=== PATIENT | female | born 1935 | race Caucasian/White ===

== ENCOUNTER 2017-07-27 09:15 | Inpatient (IN) | payer MEDICARE, OTHER ==
[2017-07-26 14:20] VITALS: BMI 29.3
[2017-07-27] MEDS ORDERED: CEFAZOLIN/Water 2 GM/20 ML SYRINGE ONE (09:49)
[2017-07-27] MEDS ORDERED: Ketorolac Tromethamine 30 MG/ML VIAL ONE (09:49)
[2017-07-27 09:55] LABS: #Eosinphils 0.1 thou/uL (0.0-0.7); #Lymphocytes 1.1 thou/uL (1.20-3.40); #Monocytes 0.3 thou/uL (0.11-0.59); #Neutrophils 3.3 thou/uL (1.40-6.50); %Basophils 0.8 % (0.0-1.0); %Eosinophils 2.9 % (0.0-10.0); %Lymphocytes 22.5 % (21.0-51.0); %Monocytes 6.8 % (0.0-10.0); Hemoglobin 13.1 g/dL (12.0-16.0); Mean Corpuscular HGB CONC 32.2 g/dL (32.0-36.0); Mean Corpuscular Hemoglobin 29.6 pg (27.0-31.0); Mean Corpuscular Volume 91.9 fl (81.0-99.0); Mean Platelet Volume 6.1 fL (7.4-10.4); Platelet Count 271 thou/uL (130-400); RBC Distribution Width 13.4 % (11.5-14.5); Red Blood Cell (RBC) Count 4.42 mill/uL (4.20-5.40); White Blood Cell (WBC) Count 4.9 thou/uL (4.8-10.8)
[2017-07-27 10:23] LABS: Anion Gap 11 mmol/L (10-20); BUN (Urea Nitrogen) 18 mg/dL (9.8-20.1); Calc. Creatinine Clearance 73 mL/min (70-130); Calcium 8.8 mg/dL (7.8-10.44); Carbon Dioxide 26 mmol/L (23-31); Chloride 105 mmol/L (98-107); Estimated GFR-MDRD 70; Glucose 90 mg/dL (83-110); Potassium 4.2 mmol/L (3.5-5.1); Sodium 138 mmol/L (136-145)
[2017-07-27] MEDS ORDERED: HYDROmorphone 0.5 MG/0.5 ML SYRINGE ONE (10:35)
[2017-07-27] MEDS ORDERED: Fentanyl 250 MCG/5 ML VIAL ONE ×2 (10:35→13:50)
[2017-07-27] MEDS ORDERED: Bupivacaine/Epinephrine 0.25% 30 ML VIAL ONE (10:43)
--- NOTE | 2017-07-27 11:02 | RAD ---
PORTABLE CHEST 1 VIEW: DATE: 07/27/17. TIME: 9:51 a.m. HISTORY: Preoperative laparoscopic Juma fundoplication. FINDINGS: The heart size is normal. The aorta is tortuous. The lungs are expanded without focal areas of cons olidation, pneumothorax, or pleural effusions. IMPRESSION: No radiographic evidence of acute cardiopulmonary process. POS: [facility]
[2017-07-27] MEDS ORDERED: Ondansetron HCl/PF 4 MG/2 ML Vial IVP PRN ×2 (14:05→15:19)
[2017-07-27] MEDS ORDERED: Promethazine HCl 25 MG/ML VIAL SLOW IVP PRN (14:05)
[2017-07-27] MEDS ORDERED: Promethazine HCl 25 MG/ML VIAL IM PRN ×2 (14:05→15:19)
[2017-07-27] MEDS ORDERED: ePHEDrine/0.9% NaCl/PF SYRINGE 50 mg/10 ml ONE (15:07)
[2017-07-27] MEDS ORDERED: Ondansetron HCl/PF 4 MG/2 ML Vial ONE (15:07)
[2017-07-27] MEDS ORDERED: PHENYLEPHRINE-NS 100 MCG/ML 10 ML SYRINGE ONE (15:07)
[2017-07-27] MEDS ORDERED: Glycopyrrolate 0.2 MG/ML 5 ML SYRINGE ONE (15:07)
[2017-07-27] MEDS ORDERED: Succinylcholine Chloride 20 MG/ML 10 ml SYRINGE FS ONE (15:07)
[2017-07-27] MEDS ORDERED: Propofol 200 MG/20 ML VIAL ONE (15:07)
[2017-07-27] MEDS ORDERED: Lidocaine 1% PF 5 ML VIAL ONE (15:07)
[2017-07-27] MEDS ORDERED: Dexamethasone 20 MG/5 ML VIAL ONE (15:07)
[2017-07-27] MEDS ORDERED: Mag-Al 1200 mg/1200 mg/30 ML UDCUP PO PRN (15:19)
[2017-07-27] MEDS ORDERED: Calcium Carbonate 500 MG ChewTAB PO PRN (15:19)
[2017-07-27] MEDS ORDERED: HYDROcodone/Acetaminophen 10/325 mg Tablet PO PRN (15:19)
[2017-07-27] MEDS ORDERED: Morphine 4 MG/ML VIAL SLOW IVP PRN ×2 (15:19)
[2017-07-27] MEDS ORDERED: hydrALAZINE 20 MG/ML VIAL SLOW IVP PRN (15:19)
[2017-07-27] MEDS ORDERED: Dextrose 5% in Water 1,000 ML IV PRN (15:19)
[2017-07-27] MEDS ORDERED: Dextrose 50% Abboject 50 ML SYRINGE SLOW IVP PRN (15:19)
[2017-07-27] MEDS: Lactated Ringer's 1,000 ML IV SCH (16:05)
[2017-07-27] MEDS: Ketorolac Tromethamine 30 MG/ML VIAL IVP SCH (17:47)
[2017-07-27] MEDS ORDERED: Donepezil HCl 10 MG TAB PO SCH (21:00)
[2017-07-27] MEDS: Famotidine/PF 20 mg/2ml Vial SLOW IVP SCH (21:53)
[2017-07-27] MEDS: Famotidine 20 MG TAB PO SCH (22:12)
[2017-07-27] MEDS: Pramipexole Di-HCl 0.25 MG TAB PO SCH (22:13)
[2017-07-27] MEDS ORDERED: Levothyroxine Sodium 112 MCG TAB PO SCH (22:30)
[2017-07-27] MEDS ORDERED: Levothyroxine Sodium 25 MCG TAB PO SCH (22:30)
[2017-07-28] MEDS: Lactated Ringer's 1,000 ML IV SCH ×2 (00:25→08:39)
[2017-07-28] MEDS: Ketorolac Tromethamine 30 MG/ML VIAL IVP SCH ×2 (00:46→06:13)
[2017-07-28 05:04] LABS: #Lymphocytes 0.8 thou/uL (1.20-3.40); #Monocytes 0.5 thou/uL (0.11-0.59); #Neutrophils 6.7 thou/uL (1.40-6.50); %Basophils 0.1 % (0.0-1.0); %Eosinophils 0.1 % (0.0-10.0); %Lymphocytes 10.3 % (21.0-51.0); %Monocytes 6.5 % (0.0-10.0); %Neutrophils 82.9 % (42.0-75.0); Hemoglobin 11.4 g/dL (12.0-16.0); Mean Corpuscular HGB CONC 33.7 g/dL (32.0-36.0); Mean Corpuscular Hemoglobin 31.9 pg (27.0-31.0); Mean Corpuscular Volume 94.5 fl (81.0-99.0); Mean Platelet Volume 6.7 fL (7.4-10.4); Platelet Count 223 thou/uL (130-400); RBC Distribution Width 13.3 % (11.5-14.5); Red Blood Cell (RBC) Count 3.56 mill/uL (4.20-5.40); White Blood Cell (WBC) Count 8.1 thou/uL (4.8-10.8)
[2017-07-28 05:30] LABS: ALT (SGPT) 45 U/L (8-55); AST (SGOT) 44 U/L (5-34); Albumin 3.3 g/dL (3.4-4.8); Alkaline Phosphatase 62 U/L (40-150); Anion Gap 9 mmol/L (10-20); BUN (Urea Nitrogen) 14 mg/dL (9.8-20.1); Bilirubin, Total 0.6 mg/dL (0.2-1.2); Calc. Creatinine Clearance 82 mL/min (70-130); Carbon Dioxide 27 mmol/L (23-31); Chloride 103 mmol/L (98-107); Estimated GFR-MDRD 80; Globulin 2.5 g/dL (2.4-3.5); Glucose 113 mg/dL (83-110); Potassium 4.1 mmol/L (3.5-5.1); Protein, Total 5.8 g/dL (6.0-8.3); Sodium 135 mmol/L (136-145)
[2017-07-28 07:44] VITALS: BP 115/70; TEMP 98.3
[2017-07-28] MEDS: Famotidine 20 MG TAB PO SCH (08:39)
[2017-07-28] MEDS: Famotidine/PF 20 mg/2ml Vial SLOW IVP SCH (08:40)
[2017-07-28] MEDS: Pramipexole Di-HCl 0.25 MG TAB PO SCH (08:40)
[2017-07-28] MEDS ORDERED: LEVOTHYROXINE SODIUM 137 MCG PO SCH (09:00)
[2017-07-28] MEDS ORDERED: Citalopram 20 MG TAB PO SCH (09:00)
[2017-07-28] MEDS ORDERED: Levothyroxine Sodium 25 MCG TAB PO SCH (21:00)
[2017-07-28] MEDS ORDERED: Levothyroxine Sodium 112 MCG TAB PO SCH (21:00)
--- NOTE | 2017-07-29 16:48 | OP ---
DATE OF CONSULTATION: 07/27/2017 PREOPERATIVE DIAGNOSES: Hiatal hernia with gastroesophageal reflux disease. POSTOPERATIVE DIAGNOSIS: Hiatal hernia with gastroesophageal reflux disease. OPERATION PERFORMED: Laparoscopic Toro fundoplication with hiatal hernia repair. SURGEON: Alexis Valladares M.D. ANESTHESIA: General endotracheal. INDICATIONS: The patient is an 81-year-old white female. She presents at this time with a symptomat ic hiatal hernia producing substantial gastroesophageal reflux. She is taken to operating room at th is time for repair. DESCRIPTION OF OPERATION: Informed consent was obtained. The patient was taken to the operating abdoulaye m where general endotracheal anesthesia was obtained with the patient in supine position. Abdomen wa s prepped with ChloraPrep and draped in sterile fashion. Local anesthetic was infiltrated and a 5 mm left lateral subcostal incision was created through which a Veress needle was passed into the perito josue cavity. Pneumoperitoneum stopped. She was covered accept a pressure of 15 mmHg. A 5 mm trocar port was passed through this same incision. Laparoscopic camera was passed through this port. Under direct vision, a 5 mm supraumbilical port was placed as well as a 5 mm right lateral port. There we re substantial omental adhesions to the anterior abdominal wall from her prior open cholecystectomy. These were all taken down carefully using the LigaSure device. When the intra-abdominal wall was cl eared completely, the two final ports were placed. An 11 mm left epigastric port and a 5 mm right ep igastric port were placed. The triangle retractor was passed through the right lateral port and used to elevate the left lobe of the liver and it was held in place. Attention was then turned to the lesser curve of the stomach. The gastrohepatic omentum was incised through the pars flaccida. This was carried up towards the eso phagus. This afforded excellent visualization of the right bruce. Retroperitoneal incision was creat ed over the right bruce and the dissection was carried to the left to begin to dissect a retroesophage al window. I then dissected the anterior aspect of the gastroesophageal junction and dissected the h iatus circumferentially down onto the left bruce. I then was able to easily visualize the retroesopha geal window and a Monett drain was passed through this and used to elevate the esophagus. Attention was turned to the greater curve of the stomach. The upper third of this was taken down usi ng the LigaSure device to divide the fatty and vascular tissue along the greater curve. This was car ried up to divide the short gastrics. The left bruce of the diaphragm was completely dissected at thi s point as well. Once the stomach was completely mobilized, attention was then returned to the esophagus. I dissected up into the mediastinum freeing the esophagus for 3-4 cm up into the mediastinum. This laxity allow ed several centimeters of the esophagus to be pulled down into the abdomen without tension. Attention was then turned to the hiatus. The hiatus was felt to be able to be approximated without a ny significant tension. The posterior crura were approximated with a suture of 0 Bralon. This led t o fairly good closure, but I decided to place one additional suture of 0 Bralon. Unfortunately, in p lacing the [id number], part of the crura on the right side of the diaphragm, the sutures had bee n placed through a torn creating a separate defect to the right. I placed one 0 Bralon stitch in thi s to close the defect and then incorporated the defect into a final stitch at the hiatus. There were then was excellent approximation of the hiatus around the esophagus. The wrap was then constructed a pulling part of the fundus through the retroesophageal window and sew ing the fundus on either side of the esophagus to itself. This was accomplished with 3 sutures of 0 Bralon. The upper and lower sutures were placed between the 2 portions of the fundus as well as inco rporating bites of the anterior part of the esophagus. The middle bite did not incorporate esophagus . The wrap was very loose around the esophagus. Not mentioned above is that the hiatus was closed over a #50 bougie and that same bougie was left in place for the wrap. Finally, I placed three additional sutures to fixate the wrap within the abdomen. I placed collar patel tures at approximately the 1:30 and the 10:30 radians between the wrap and the hiatus. I also placed a posterior gastropexy between the wrap and the crural closure posteriorly. The area was irrigated and all irrigant was aspirated. There have been no substantial blood loss during the operation. The snake retractor was removed. The fascia at the 11 mm port site was closed with 0 Vicryl suture usin g a GraNee needle. All ports and instruments were removed under direct vision. Pneumoperitoneum was carefully evacuated. Quarter percent Marcaine with epinephrine was infiltrated at each port site an d skin edges approximated with 4-0 Monocryl subcuticular suture. Dermabond was placed externally. T here were no complications. Patient tolerated the procedure well and was taken to recovery room in s table condition.
--- NOTE | 2017-08-01 20:11 | EKG ---
Test Reason : PREOP Blood Pressure : / mmHG Vent. Rate : 070 BPM Atrial Rate : 070 BPM P-R Int : 186 ms QRS Dur : 074 ms QT Int : 410 ms P-R-T Axes : 024 050 051 degrees QTc Int : 442 ms Normal sinus rhythm Normal ECG When compared with ECG of 04-DEC-2016 13:38, No significant change was found Confirmed by BUFFY BRADSHAW (2) on 08/01/2017 8:10:45 PM Referred By: FROYLAN Confirmed By:BUFFY BRADSHAW
== END 2017-07-28 11:37 | disposition home or self-care (01) | DRG 328 ==
LOC: SDC 09:15 → SURG A 15:16 → OBSVTOIN 15:19
PROVIDERS: ADMIT Specialist; ATTEND Specialist
PROC: 0DV44ZZ Restriction of Esophagogastric Junction, Percutaneous Endoscopic Approach (ICD-10-PCS; principal; 2017-07-27)
PROC: 0BQT4ZZ Repair Diaphragm, Percutaneous Endoscopic Approach (ICD-10-PCS; 2017-07-27)
DX: K44.9 Diaphragmatic hernia without obstruction or gangrene (principal); G30.1 Alzheimer's disease with late onset; E78.2 Mixed hyperlipidemia; F02.80 Dementia in other diseases classified elsewhere, unspecified severity, without behavioral disturbance, psychotic disturbance, mood disturbance, and anxiety; K21.0 Gastro-esophageal reflux disease with esophagitis; E89.0 Postprocedural hypothyroidism; G25.81 Restless legs syndrome; Z96.653 Presence of artificial knee joint, bilateral; Z96.649 Presence of unspecified artificial hip joint; Z88.5 Allergy status to narcotic agent; Z88.2 Allergy status to sulfonamides
CPT/HCPCS: 36415; 71045; 80048; 80053; 85025; 93005; 93010; J0131; J0360; J1100; J1170; J1885; J2001; J2270; J2405; J2704; J3010

== ENCOUNTER 2018-03-29 10:42 | Outpatient (CLI) | payer MEDICARE, OTHER | END 2018-03-29 10:43 | disposition home or self-care (01) | LOC: BICMAMMO 10:42 | PROVIDERS: ATTEND Family Medicine | DX: Z12.31 Encounter for screening mammogram for malignant neoplasm of breast (principal) | CPT/HCPCS: 77063; 77067 ==